=== PATIENT | female | born 1965 | race Native Hawaiian/Other Pacific Islander ===

== ENCOUNTER 2022-12-30 09:14 | Day surgery (SDC) | payer OTHER, SELFPAY ==
--- NOTE | 2022-12-30 | PATH_ITS ---
[facility] Accession Number: [id number] No. of containers..01 Tissue . 01 Material submitted: . colon - RANDOM COLON BIOPSIES . 01 Diagnosis: Random Colon, Biopsies: Colonic mucosa with no diagnostic abnormality. Negative for active, chronic, and microscopic colitis. Negative for dysplasia and malignancy. . MRV 01/01/2023 1742 Local . 01 Electronically signed: . Hali Luna MD, Pathologist NPI- [id number] . 01 Gross description: . RANDOM COLON BIOPSIES: Received in formalin are 2 fragment(s) of mark, soft tissue measuring 0.2 x 0.1 x 0.1 cm to 0.2 x 0.1 x 0.1 cm submitted entirely in 1 cassette(s) /CPE 12/31/2022 0723 Local . 01 Pathologist provided ICD-10: R19.4 . 01 CPT . 966528 Specimen Comment: A courtesy copy of this report has been sent to [phone] Performed at: 01 [facility] [address] [place] [address] [id number] MD Arturo Mariano MD Phone: [phone]
[2022-12-30] MEDS: LACTATED RINGERS 1,000 ML 100 ML IV (09:50)
[2022-12-30 09:58] VITALS: BP 147/87; PULSE 97; RESP 16; TEMP 36.4; O2SAT 96; BMI 32.1
--- NOTE | 2022-12-30 10:17 | PM.HP.1 ---
History of Present Illness History of Present Illness Date Patient Seen: 12/30/22 Time Patient Seen: 10:17 Chief complaint: SDC Narrative: I reviewed my recent office note. No significant changes. PFSH Medical History Hypercholesteremia Hypertension Surgical History (Updated 12/27/22 @ 14:50 by Mirela Poole RN) H/O total hip arthroplasty Social History household members: significant other Smoking Status: Never smoker alcohol intake: current Meds Home Medications and Allergies Home Medications Medication Instructions Recorded Confirmed Type atorvastatin 20 mg PO DAILY 12/30/22 12/30/22 History lisinopril 10 1 tab PO DAILY 12/30/22 12/30/22 History mg-hydrochlorothiazide 12.5 mg tablet Allergies Allergy/AdvReac Type Severity Reaction Status Date / Time sulfamethoxazole Allergy Intermediate Swelling Verified 12/30/22 09:54 [From Bactrim] of Lip/Tongue/Throat trimethoprim [From Bactrim] Allergy Intermediate Swelling Verified 12/30/22 09:54 of Lip/Tongue/Throat Review of Systems Review of Systems ROS: Yes All systems reviewed with the patient and are negative except as otherwise documented Exam Vital Signs (past 8 hours): - 12/30/22 09:58 Temperature 97.6 F Pulse Rate 97 H Respiratory Rate 16 Blood Pressure 147/87 H Pulse Oximetry 96 Oxygen Delivery Method Room Air Oxygen Delivery Method Room Air Const General: cooperative HENMT Head: normal to inspection Eyes General: appearance normal, both eyes and all related structures Neck Neck: normal visual inspection Chest Chest: normal inspection of the chest Resp Effort & Inspection: normal respiratory effort Cardio Rate: regular rate GI Inspection: normal to inspection Skin General: no rashes or lesions noted Neuro General: patient alert and patient awake Extrem General: normal to inspection and no pedal edema Psych Appearance: grossly normal Assessment & Plan Assessment & Plan narrative: 57-year-old female with change in bowel habit with diarrhea and constipation.. She is had some improvement with fiber. Colonoscopy is pursued today.
--- NOTE | 2022-12-30 10:18 | PM.PREOP ---
Pre-operative Note Interval Note History & Physical reviewed/Exam performed by Physician: Yes Changes to H&P: No ASA Class (for procedural sedation): II
[2022-12-30 11:20] VITALS: BP 91/52; PULSE 72; RESP 16; TEMP 36.2; O2SAT 98
--- NOTE | 2022-12-30 11:21 | PM.OP.COLON ---
Operative Date/Time/Diagnoses Date of procedure: 12/30/22 Time of procedure: 11:21 Pre-op diagnosis: Change in bowel habits. Post-op diagnosis: same Procedure & Clinicians Study performed: Colonoscopy with biopsies Same procedure as scheduled: Yes Indications: Change in bowel habits Surgeon: Nestor Galarza Procedure Notes SCOAP/Timeout: Done Procedure in detail: After the risks and benefits were explained, written and verbal informed consent was obtained. The patient was brought into the procedure room and placed into the left lateral decubitus position. Please see anesthesia notes for sedation details. Digital rectal examination was accomplished. The scope was introduced into the patient and advanced under direct visualization to the cecum as identified by the appendiceal orifice and ileocecal valve. The scope was slowly withdrawn to carefully examine the mucosa for any defects or lesions. Comprehensive imaging was accomplished throughout the rectum including the dentate line. The colon was decompressed, the scope was then removed from the patient who tolerated the procedure well. Pediatric colonoscope Bowel prep adequate Scope withdrawal time: 7 minutes Sedation minutes: 10 Complications: none Impression: There was no evidence of any procto colitis throughout. The terminal ileum was interrogated and appeared normal. Random colon biopsies were taken for exclusion of microscopic colitis. The patient had evidence of grade 3 and grade 4 hemorrhoids nonthrombosed. Endoscopic diagnosis 1. Grade 3-4 hemorrhoids 2. Otherwise visually normal colonoscopy Post-procedure Plan for aftercare: 1. Await histopathology 2. As discussed in the office, fiber based bowel regimen for soft regular stools. Disposition: PACU
[2022-12-30 11:24] VITALS: BP 95/67; PULSE 75; RESP 19; O2SAT 96
[2022-12-30 11:30] VITALS: BP 109/61; PULSE 74; RESP 18; TEMP 36.3; O2SAT 97
== END 2022-12-30 11:43 | disposition home or self-care (01) ==
PROVIDERS: PCP Physician Assistant; Referring Provider Internal Medicine Gastroenterology; Visit Provider Internal Medicine Gastroenterology
PROC: 0DJD8ZZ Inspection of Lower Intestinal Tract, Via Natural or Artificial Opening Endoscopic (ICD-10-PCS; CPT 45378; principal; 2022-12-30 10:30)
DX: R19.4 Change in bowel habit (principal); K64.2 Third degree hemorrhoids
CPT/HCPCS: 45380; J2704